=== PATIENT | male | born 1960 | race Caucasian/White ===

== ENCOUNTER → 2021-03-15 | Emergency (ER) | payer BC ==
[~2021-03-15] VITALS: Ht 177.8 cm; Wt 104.3 kg
[~2021-03-15] MED LIST: DELSYM30 MG/5 ML PO; VENTOLIN HFA 66.7 GM INH
[2021-03-15 12:39] LABS: HEMOGLOBIN 14.4 gm/dl (14.0-17.5); RED BLOOD COUNT 4.6 M/UL (4.20-5.50); WHITE BLOOD COUNT 5.8 K/UL (4.5-11.0)
== END | disposition home or self-care (01) ==
LOC: ER1 10:39
PROVIDERS: Physician Assistant Medical
DX: Z23 Encounter for immunization (principal); U07.1 COVID-19; Z90.49 Acquired absence of other specified parts of digestive tract
CPT/HCPCS: 71045; 80053; 85025; 99283; M0243